=== PATIENT | male | born 1995 | race Caucasian/White ===

== ENCOUNTER 2022-12-20 15:32 | Emergency (ER) | payer OTHER ==
[~2022-12-20] VITALS: Ht 177.8 cm; Wt 81.6 kg
[2022-12-20] MEDS ORDERED: KETOROLAC TROMETHAMINE 15 MG INJ IVP ONE (16:15)
[2022-12-20] MEDS ORDERED: IV NORMAL SALINE 500 ML BAG IV ONE (16:15)
[2022-12-20] MEDS ORDERED: KETOROLAC TROMETHAMINE 15 MG INJ ONE (16:21)
[2022-12-20 16:41] LABS: HEMATOCRIT 42.5 % (36.7-47.1); MEAN CORPUSCULAR HEMOGLOBIN 29.4 uug (23.8-33.4); MEAN CORPUSCULAR VOLUME 87.4 fL (73.0-96.2); PLATELET COUNT (AUTO) 302 K/uL (152-348)
[2022-12-20 17:04] LABS: POTASSIUM 4.5 mmol/L (3.5-5.1)
[2022-12-20 17:09] LABS: BILIRUBIN,TOTAL 0.8 mg/dL (0.2-1.0); TOTAL PROTEIN, SERUM 7.6 g/dL (6.4-8.2)
--- NOTE | 2022-12-20 18:28 | NUR ---
Removed IV intact, site okay, bandaged. Gave pt d/c instructions, pt verbalized understanding.
== END 2022-12-20 18:30 | disposition home or self-care (01) ==
LOC: ER 15:32
DX: R51.9 Headache, unspecified (principal); M54.2 Cervicalgia; M54.9 Dorsalgia, unspecified; R07.89 Other chest pain; V43.52XA Car driver injured in collision with other type car in traffic accident, initial encounter; Y93.89 Activity, other specified; Y92.410 Unspecified street and highway as the place of occurrence of the external cause; Y99.8 Other external cause status
CPT/HCPCS: 99285; 70450; 96374; 71045; 96361; 80053; 83690; 85025; 84484; 36415; 93005; 72125; 72128; 72131; J1885; J7040; A4663